=== PATIENT | male | born 1960 | race Caucasian/White ===

== ENCOUNTER 2016-12-24 08:46 | Day surgery (SDC) | payer OTHER ==
[2016-12-21 13:49] VITALS: BMI 34.0
[~2016-12-24 08:46] MED LIST: DEXAMETHASONE SOD PHOSPHATE 10 MG/ML 1 ML VIAL IV ONE; HYDROmorphone 1 MG/ML 1 ML SYRINGE IVP PRN; LACTATED RINGERS 1,000 ML IV SCH; MIDAZOLAM 2 MG/2 ML VIAL IV PRN; ONDANSETRON 4 MG/2 ML VIAL IVP ONE; SCOPOLAMINE 1.5MG/72HR PATCH TRANSDERM ONE
[2016-12-24 09:15] VITALS: TEMP 98.7
[2016-12-24] MEDS ORDERED: LIDOCAINE 1% INJ 10MG/ML (20 ML MDV) ONE (09:52)
[2016-12-24] MEDS ORDERED: PROPOFOL 10 MG/ML 20 ML VIAL IV ONE (09:52)
--- NOTE | 2016-12-24 10:19 | P.GSHP ---
History of Present Illness H&P Date: 12/24/16 Chief Complaint: Screening colonoscopy Is a 56-year-old male referred from Dr. Cintron. Patient rents today for screening colonoscopy. He's never had a colonoscopy performed before. - Constitutional Constitutional: Reports as per HPI Past Medical History Past Medical History: Hyperlipidemia, Hypertension Additional Past Medical History / Comment(s): . History of Any Multi-Drug Resistant Organisms: None Reported Past Surgical History: Orthopedic Surgery Additional Past Surgical History / Comment(s): ARTHROSCOPY KNEE SURG., CELINA CATARACT , CERVICAL FUSION Past Anesthesia/Blood Transfusion Reactions: No Reported Reaction Past Psychological History: No Psychological Hx Reported Smoking Status: Former smoker Past Alcohol Use History: Occasional Additional Past Alcohol Use History / Comment(s): QUIT SMOKING 1 MONTH AGO. STARTED SMOKING IN HIS 20'S. , SMOKED 1PPD. Past Drug Use History: None Reported - Past Family History Mother Family Medical History: No Reported History Medications and Allergies Home Medications Medication Instructions Recorded Confirmed Type Rosuvastatin Calcium [Crestor] 20 mg PO DAILY@1300 07/09/14 12/24/16 History Losartan Potassium [Cozaar] 100 mg PO DAILY@1300 12/21/16 12/24/16 History Timolol 0.5% Ophth Soln [Timoptic 1 drop BOTH EYES DAILY 12/21/16 12/24/16 History 0.5% Ophth Soln] amLODIPine BESYLATE [Norvasc] 5 mg PO DAILY@1300 12/21/16 12/24/16 History Allergies Allergy/AdvReac Type Severity Reaction Status Date / Time No Known Allergies Allergy Verified 12/24/16 09:16 Surgical - Exam Vital Signs Temp Pulse Resp BP Pulse Ox 98.7 F 72 18 133/77 98 12/24/16 09:13 12/24/16 09:13 12/24/16 09:13 12/24/16 09:13 12/24/16 09:13 - General well developed, no distress - Eyes PERRL - ENT normal pinna - Neck no masses - Abdomen Abdomen: soft, non tender Assessment and Plan Plan: We'll perform screening colonoscopy.
--- NOTE | 2016-12-24 10:36 | P.OP ---
Date of Procedure: 12/24/16 Preoperative Diagnosis: Screening colonoscopy Postoperative Diagnosis: Normal colon Procedure(s) Performed: Colonoscopy Anesthesia: MAC Surgeon: Elvis Wu Pathology: none sent Condition: stable Disposition: PACU Description of Procedure: PROCEDURE: The patient was placed on the endoscopy table in the lateral position. Digital rectal examination was performed which revealed no abnormalities. The prostate was symmetrical without nodules. Flexible colonoscope was then placed in the patient's anus and passed throughout the entire colon. The ileocecal valve was visualized. The cecum, ascending, transverse, descending and sigmoid colon were normal. The rectum was normal as well. There were no masses, polyps or diverticula noted in the entire colon. SUMMARY OF FINDINGS: Normal colonoscopy.
[2016-12-24 10:53] VITALS: BP 141/87; PULSE 65; RESP 16
== END 2016-12-24 11:07 | disposition home or self-care (01) ==
LOC: ORWHC2ENDO 08:46
PROVIDERS: ATTEND Surgery
DX: Z12.11 Encounter for screening for malignant neoplasm of colon (principal); E78.5 Hyperlipidemia, unspecified; I10 Essential (primary) hypertension; Z79.899 Other long term (current) drug therapy; Z87.891 Personal history of nicotine dependence
CPT/HCPCS: J2001; J2704; G0121; 99153

== ENCOUNTER 2019-02-25 12:05 | Observation (INO) | payer OTHER ==
[2019-02-25] MEDS ORDERED: NITROGLYCERIN OINT 1 INCH/GM PACKET TOPICAL STA (12:16)
[2019-02-25] MEDS ORDERED: ASPIRIN 81 MG PO STA (12:16)
--- NOTE | 2019-02-25 12:19 | ED ---
General Adult HPI - General Chief complaint: Chest Pain Stated complaint: Chest discomfort Time Seen by Provider: 02/25/19 12:14 Source: patient, RN notes reviewed Mode of arrival: ambulatory Limitations: no limitations - History of Present Illness Initial comments: Patient is a pleasant 59-year-old male presenting to the emergency Department with complaints of chest discomfort. Onset of symptoms was yesterday. Discomfort was waxing and waning however now is more persistent. Discomfort is mild. Discomfort is described as tightness under the left chest. No associated dyspnea, nausea, or diaphoresis. Minimal cough. No leg pain or leg swelling. Patient did have similar symptoms once previously associated with pneumonia. No radiation of discomfort. - Related Data Home Medications Medication Instructions Recorded Confirmed Rosuvastatin Calcium [Crestor] 20 mg PO DAILY@1300 07/09/14 02/25/19 Timolol 0.5% Ophth Soln [Timoptic 1 drop BOTH EYES DAILY 12/21/16 02/25/19 0.5% Ophth Soln] amLODIPine BESYLATE [Norvasc] 5 mg PO DAILY@1300 12/21/16 02/25/19 Irbesartan [Avapro] 150 mg PO DAILY@1300 02/25/19 02/25/19 Allergies Allergy/AdvReac Type Severity Reaction Status Date / Time No Known Allergies Allergy Verified 02/25/19 12:27 Review of Systems ROS Statement: Those systems with pertinent positive or pertinent negative responses have been documented in the HPI. ROS Other: All systems not noted in ROS Statement are negative. Constitutional: Denies: fever Eyes: Denies: eye pain ENT: Denies: ear pain Respiratory: Reports: as per HPI. Denies: dyspnea Cardiovascular: Reports: chest pain Endocrine: Denies: fatigue Gastrointestinal: Denies: abdominal pain Genitourinary: Denies: dysuria Musculoskeletal: Denies: back pain Skin: Denies: rash Neurological: Denies: weakness Past Medical History Past Medical History: Hyperlipidemia, Hypertension Additional Past Medical History / Comment(s): . History of Any Multi-Drug Resistant Organisms: None Reported Past Surgical History: Orthopedic Surgery Additional Past Surgical History / Comment(s): ARTHROSCOPY KNEE SURG, CELINA CATARACT, CERVICAL FUSION Past Anesthesia/Blood Transfusion Reactions: No Reported Reaction Past Psychological History: No Psychological Hx Reported Smoking Status: Current every day smoker Past Alcohol Use History: Occasional Past Drug Use History: None Reported - Past Family History Mother Family Medical History: No Reported History General Exam Limitations: no limitations General appearance: alert, in no apparent distress Head exam: Present: atraumatic Eye exam: Present: normal appearance Neck exam: Present: normal inspection Respiratory exam: Present: normal lung sounds bilaterally. Absent: chest wall tenderness Cardiovascular Exam: Present: regular rate, normal rhythm Expanded Peripheral pulses: 2+: Radial (R), Radial (L), Posterior Tibialis (R), Posterior Tibialis (L) GI/Abdominal exam: Present: soft. Absent: tenderness Extremities exam: Present: normal inspection. Absent: pedal edema, calf tenderness Neurological exam: Present: alert Psychiatric exam: Present: normal affect, normal mood Skin exam: Present: normal color Course Vital Signs 02/25/19 02/25/19 12:07 13:31 Temperature 98.4 F Pulse Rate 77 65 Respiratory 18 18 Rate Blood Pressure 152/78 135/75 O2 Sat by Pulse 99 98 Oximetry EKG Findings - EKG Comments: EKG Findings:: Normal sinus rhythm 72. [place] 146. QRS 90. QT 370. QTc 405. Left axis. Normal QRS. No acute ST change. Medical Decision Making - Medical Decision Making Patient reevaluated and improved with Nitropaste. Patient and family updated on results and plan. Case was discussed in detail with Dr. Barrios, covering for Dr. Cintron, who will admit. - Lab Data Result diagrams: 02/25/19 12:35 02/25/19 12:35 Lab Results 02/25/19 02/25/19 02/25/19 Range/Units 12:35 12:35 12:35 WBC 5.9 (3.8-10.6) k/uL RBC 4.89 (4.30-5.90) m/uL Hgb 14.8 (13.0-17.5) gm/dL Hct 43.7 (39.0-53.0) % MCV 89.4 (80.0-100.0) fL MCH 30.4 (25.0-35.0) pg MCHC 34.0 (31.0-37.0) g/dL RDW 12.9 (11.5-15.5) % Plt Count 237 (150-450) k/uL Neutrophils % 60 % Lymphocytes % 22 % Monocytes % 7 % Eosinophils % 8 % Basophils % 1 % Neutrophils # 3.6 (1.3-7.7) k/uL Lymphocytes # 1.3 (1.0-4.8) k/uL Monocytes # 0.4 (0-1.0) k/uL Eosinophils # 0.5 (0-0.7) k/uL Basophils # 0.1 (0-0.2) k/uL PT 10.0 (9.0-12.0) sec INR 0.9 (<1.2) APTT 24.8 (22.0-30.0) sec Sodium 141 (137-145) mmol/L Potassium 4.3 (3.5-5.1) mmol/L Chloride 107 (98-107) mmol/L Carbon Dioxide 27 (22-30) mmol/L Anion Gap 7 mmol/L BUN 17 (9-20) mg/dL Creatinine 0.96 (0.66-1.25) mg/dL Est GFR (CKD-EPI)AfAm >90 (>60 ml/min/1.73 sqM) Est GFR (CKD-EPI)NonAf 86 (>60 ml/min/1.73 sqM) Glucose 124 H (74-99) mg/dL Calcium 10.1 (8.4-10.2) mg/dL Magnesium 2.2 (1.6-2.3) mg/dL Total Bilirubin 0.6 (0.2-1.3) mg/dL AST 24 (17-59) U/L ALT 34 (21-72) U/L Alkaline Phosphatase 97 (38-126) U/L Troponin I (0.000-0.034) ng/mL Total Protein 7.4 (6.3-8.2) g/dL Albumin 4.8 (3.5-5.0) g/dL 02/25/19 Range/Units 12:35 WBC (3.8-10.6) k/uL RBC (4.30-5.90) m/uL Hgb (13.0-17.5) gm/dL Hct (39.0-53.0) % MCV (80.0-100.0) fL MCH (25.0-35.0) pg MCHC (31.0-37.0) g/dL RDW (11.5-15.5) % Plt Count (150-450) k/uL Neutrophils % % Lymphocytes % % Monocytes % % Eosinophils % % Basophils % % Neutrophils # (1.3-7.7) k/uL Lymphocytes # (1.0-4.8) k/uL Monocytes # (0-1.0) k/uL Eosinophils # (0-0.7) k/uL Basophils # (0-0.2) k/uL PT (9.0-12.0) sec INR (<1.2) APTT (22.0-30.0) sec Sodium (137-145) mmol/L Potassium (3.5-5.1) mmol/L Chloride (98-107) mmol/L Carbon Dioxide (22-30) mmol/L Anion Gap mmol/L BUN (9-20) mg/dL Creatinine (0.66-1.25) mg/dL Est GFR (CKD-EPI)AfAm (>60 ml/min/1.73 sqM) Est GFR (CKD-EPI)NonAf (>60 ml/min/1.73 sqM) Glucose (74-99) mg/dL Calcium (8.4-10.2) mg/dL Magnesium (1.6-2.3) mg/dL Total Bilirubin (0.2-1.3) mg/dL AST (17-59) U/L ALT (21-72) U/L Alkaline Phosphatase (38-126) U/L Troponin I <0.012 (0.000-0.034) ng/mL Total Protein (6.3-8.2) g/dL Albumin (3.5-5.0) g/dL - Radiology Data Interpreted by me: Chest x-ray reveals no acute process. There are chronic changes similar to previous x-ray. Disposition Clinical Impression: Chest pain Disposition: ADMITTED IP TO THIS HOSP Is patient prescribed a controlled substance at d/c from ED?: No Referrals: Sam Cintron MD [Primary Care Provider] - 1-2 days Decision Time: 14:14
[2019-02-25 13:27] LABS: ALT 34 U/L (21-72); AST 24 U/L (17-59); Albumin 4.8 g/dL (3.5-5.0); Alkaline Phosphatase 97 U/L (38-126); Anion Gap 7 mmol/L; Blood Urea Nitrogen 17 mg/dL (9-20); Calcium 10.1 mg/dL (8.4-10.2); Carbon Dioxide 27 mmol/L (22-30); Chloride 107 mmol/L (98-107); Glucose 124 mg/dL (74-99); INR 0.9 (<1.2); Magnesium 2.2 mg/dL (1.6-2.3); Partial Thromboplastin Time 24.8 sec (22.0-30.0); Potassium 4.3 mmol/L (3.5-5.1); Sodium 141 mmol/L (137-145); Total Bilirubin 0.6 mg/dL (0.2-1.3); Total Protein 7.4 g/dL (6.3-8.2)
[2019-02-25 13:33] LABS: Basophils # (A) 0.1 k/uL (0-0.2); Basophils % (A) 1 %; Eosinophils # (A) 0.5 k/uL (0-0.7); Eosinophils % (A) 8 %; HCT 43.7 % (39.0-53.0); HGB 14.8 gm/dL (13.0-17.5); Lymphocytes # (A) 1.3 k/uL (1.0-4.8); Lymphocytes % (A) 22 %; MCH 30.4 pg (25.0-35.0); MCV 89.4 fL (80.0-100.0); Mean Platelet Volume 6.6; Monocytes # (A) 0.4 k/uL (0-1.0); Monocytes % (A) 7 %; Neutrophils # (A) 3.6 k/uL (1.3-7.7); Neutrophils % (A) 60 %; Platelet Count 237 k/uL (150-450); RBC 4.89 m/uL (4.30-5.90); RDW 12.9 % (11.5-15.5); WBC 5.9 k/uL (3.8-10.6)
[2019-02-25] MEDS ORDERED: NITROGLYCERIN SL TABS 0.4 MG TAB SUBLINGUAL PRN (14:14)
--- NOTE | 2019-02-25 14:34 | XR ---
EXAMINATION TYPE: XR chest 2V DATE OF EXAM: 02/25/2019 HISTORY: Chest Pain. REFERENCE: Previous study dated 07/05/2014. FINDINGS: There has been a previous ACDF in the lower cervical spine. Lung volumes are prominent. There are calcified pleural plaques on the right. The lungs are otherwise clear. The heart is not enlarged. IMPRESSION: NO ACUTE INTRATHORACIC ABNORMALITY.
--- NOTE | 2019-02-25 15:05 | P.HPIM ---
History of Present Illness Patient was a 59-year-old gentleman came in with compensative chest discomfort going on since yesterday constant mild pressure-like sensation nonradiating not associated food not associated debriding denied any lightheadedness diaphoresis or shortness of breath associated that patient does smoke about one pack of cigarettes in 3 days and does have history of hypertension and hyperlipidemia, family history of myocardial infarction mother at age 62 and she after that [place]. Patient any fever chills patient chest x-ray did not show pneumonia patient denied any significant cough. Chest pain is nonradiating. No associated [place]. Troponin is negative EKG did not show any acute ST-T wave changes Review of Systems REVIEW OF SYSTEMS: CONSTITUTIONAL: No fever, no malaise, no fatigue. HEENT: No recent visual problems or hearing problems. Denied any sore throat. CARDIOVASCULAR: No orthopnea, PND, no palpitations, no syncope. PULMONARY: No shortness of breath, no cough, no hemoptysis. GASTROINTESTINAL: No diarrhea, no nausea, no vomiting, no abdominal pain. NEUROLOGICAL: No headaches, no weakness, no numbness. HEMATOLOGICAL: Denies any bleeding or petechiae. GENITOURINARY: Denies any burning micturition, frequency, or urgency. MUSCULOSKELETAL/RHEUMATOLOGICAL: Denies any joint pain, swelling, or any muscle pain. ENDOCRINE: Denies any polyuria or polydipsia. The rest of the 14-point review of systems is negative. Past Medical History Past Medical History: Hyperlipidemia, Hypertension Additional Past Medical History / Comment(s): . History of Any Multi-Drug Resistant Organisms: None Reported Past Surgical History: Orthopedic Surgery Additional Past Surgical History / Comment(s): ARTHROSCOPY KNEE SURG, CELINA CATARACT, CERVICAL FUSION Past Anesthesia/Blood Transfusion Reactions: No Reported Reaction Past Psychological History: No Psychological Hx Reported Smoking Status: Current every day smoker Past Alcohol Use History: Occasional Past Drug Use History: None Reported - Past Family History Mother Family Medical History: No Reported History Medications and Allergies Home Medications Medication Instructions Recorded Confirmed Type Rosuvastatin Calcium [Crestor] 20 mg PO DAILY@1300 07/09/14 02/25/19 History Timolol 0.5% Ophth Soln [Timoptic 1 drop BOTH EYES DAILY 12/21/16 02/25/19 Histo ry 0.5% Ophth Soln] amLODIPine BESYLATE [Norvasc] 5 mg PO DAILY@1300 12/21/16 02/25/19 History Irbesartan [Avapro] 150 mg PO DAILY@1300 02/25/19 02/25/19 History Allergies Allergy/AdvReac Type Severity Reaction Status Date / Time No Known Allergies Allergy Verified 02/25/19 12:27 Physical Exam Vitals: Vital Signs Temp Pulse Resp BP Pulse Ox 02/25/19 14:23 64 18 126/76 96 02/25/19 13:31 65 18 135/75 98 02/25/19 12:07 98.4 F 77 18 152/78 99 Intake and Output 02/25/19 02/25/19 02/25/19 06:59 14:59 22:59 Other: Weight 109.361 kg PHYSICAL EXAMINATION: GENERAL: The patient is alert and oriented x3, not in any acute distress. Well developed, well nourished. HEENT: Pupils are round and equally reacting to light. EOMI. No scleral icterus. No conjunctival pallor. Normocephalic, atraumatic. No pharyngeal erythema. No thyromegaly. CARDIOVASCULAR: S1 and S2 present. No murmurs, rubs, or gallops. PULMONARY: Chest is clear to auscultation, no wheezing or crackles. ABDOMEN: Soft, nontender, nondistended, normoactive bowel sounds. No palpable organomegaly. MUSCULOSKELETAL: No joint swelling or deformity. EXTREMITIES: No cyanosis, clubbing, or pedal edema. NEUROLOGICAL: Gross neurological examination did not reveal any focal deficits. SKIN: No rashes. Results CBC & Chem 7: 02/25/19 12:35 02/25/19 12:35 Labs: Abnormal Lab Results - Last 24 Hours (Table) 02/25/19 Range/Units 12:35 Glucose 124 H (74-99) mg/dL Assessment and Plan Plan: Chest pain: Atypical, will rule out acute coronary syndromes and unstable angina patient does have risk factors may benefit from stress test. Cardiology will evaluate the patient will obtain 2 more sets of troponins and EKGs. -Hypertension -Hyperlipidemia -Nicotine abuse: Counseling was provided For hypertension hyperlipidemia patient was on her home medications
[2019-02-25 17:18] VITALS: BMI 33.6
[2019-02-25] MEDS: NITROGLYCERIN OINT 1 INCH/GM PACKET TOPICAL SCH (17:55)
[2019-02-25 21:57] LABS: Cholesterol 151 mg/dL (<200); HDL Cholesterol 27 mg/dL (40-60); LDL Cholesterol,Calculated 53 mg/dL (0-99); Triglycerides 356 mg/dL (<150)
[2019-02-26] MEDS: NITROGLYCERIN OINT 1 INCH/GM PACKET TOPICAL SCH ×2 (01:25→03:55)
[2019-02-26 08:36] VITALS: RESP 18
[2019-02-26] MEDS ORDERED: TIMOLOL 0.5% OPHTH DROPS 5 ML BTL BOTH EYES SCH (09:00)
[2019-02-26] MEDS ORDERED: ASPIRIN 325 MG TAB PO SCH (09:00)
[2019-02-26] MEDS ORDERED: DOBUTamine DRIP for NUC MED 500 MG in DEXTROSE/WATER 1 250ML.BAG IV ONE (09:45)
--- NOTE | 2019-02-26 11:19 | P.CRDCN ---
History of Present Illness History of present illness: This is a pleasant 59-year-old male past medical history significant for hypertension, dyslipidemia and chronic nicotine dependence. He also has family history of his mother having premature coronary artery disease in her early 60s. He denies personal history of coronary artery disease and does not follow regularly with a chairman and ceo for any reason. We have been asked to see him in consultation secondary to chest discomfort. He states he started feeling intermittent tight heavy sensation in the left precordial region on Tuesday. This was not associated with exertion or activity with no specific aggravating factor. He states in the past he has had pneumonia and it seemed similar to how he felt at that time. Although he denies any shortness of breath or coughing associated with his discomfort. There was no radiation through to the back or down the arm. On Tuesday the symptoms were much more constant in nature and seemed to intensify. There was still no radiation of his discomfort and no associated symptoms. He states through the night he continued to have chest discomfort and it did seem to be worse when he leaned his body forward. No alleviating factors noted. He does currently have a nitro patch in place. EKG reviewed 3 are all normal with no acute ST or T wave abnormalities noted. Chest x-ray is negative for an acute cardiopulmonary process. Laboratory data reviewed, WBC 5.9, hemoglobin 14.8, platelets 237, sodium 141, potassium 4.3, creatinine 0.96, magnesium 2.2, cardiac enzymes negative 3, triglycerides 356, LDL 53. Current cardiac medications include irbesartan 150 mg daily, rosuvastatin 20 mg daily and amlodipine 5 mg daily. Most recent in 2013 he underwent a stress echocardiogram which was negative for stress-induced cardiac ischemia. At the time of my exam: CONSTITUTIONAL: Denies fever. Denies chills. EYES: Denies blurred vision. Denies vision changes. Denies eye pain. EARS, NOSE, MOUTH & THROAT: Denies headache. Denies sore throat. Denies ear pain. CARDIOVASCULAR: Complains of chest pain. Denies shortness of breath. Denies orthopnea. Denies PND. Denies palpitations. RESPIRATORY: Denies cough. GASTROINTESTINAL: Denies abdominal pain. Denies diarrhea. Denies constipation. Denies nausea. Denies vomiting. MUSCULOSKELETAL: Denies myalgias. INTEGUMENTARY: Denies pruitis. Denies rash. NEUROLOGIC: Denies numbness. Denies tingling. Denies weakness. PSYCHIATRIC: Denies anxiety. Denies depression. ENDOCRINE: Denies fatigue. Denies weight change. Denies polydipsia. Denies polyurina. GENITOURINARY: Denies burning, hematuria or urgency with micturation. HEMATOLOGIC: Denies history of anemia. Denies bleeding. Blood pressure 128/77 heart rate 73 afebrile maintaining oxygen saturation on room air GENERAL: This is a 59-year-old male in no apparent distress at the time of my examination. HEENT: Head is atraumatic, normocephalic. Pupils are equal, round. Sclerae anicteric. Conjunctivae are clear. Mucous membranes of the mouth are moist. Neck is supple. There is no jugular venous distention. No carotid bruit is heard. LUNGS: Clear to auscultation no wheezes, rales or rhonchi. No chest wall tenderness is noted on palpation or with deep breathing. HEART: Regular rate and rhythm without murmurs, rubs or gallops. S1 and S2 heard. ABDOMEN: Soft, nontender. Bowel sounds are heard. No organomegaly noted. EXTREMITIES: No evidence of peripheral edema and no calf tenderness noted. VASCULAR: Radial and dorsalis pedis pulses palpated, no evidence of clubbing. NEUROLOGIC: Patient is awake, alert and oriented x3. ASSESSMENT Precordial chest discomfort Hypertension Dyslipidemia Chronic nicotine dependence Family history of premature coronary artery disease PLAN An acute coronary event has been ruled out. Obtain 2-D echocardiogram and Doppler study to assess cardiac structure and function. Lengthy discussion had with the patient as well as his regarding stress testing versus coronary angiography due to his risk factors and symptoms. The patient will prefer to undergo a stress test to rule out significant ischemia. We will perform a dobutamine stress echocardiogram. If there is any abnormality we will proceed with coronary angiography. If stress test is normal he may be discharged home to follow-up with Dr. Parisi in the office in 2 weeks. Smoking cessation recommended. Thank you kindly for this consultation. Nurse Practitioner note has been reviewed, I agree with a documented findings and plan of care. Patient was seen and examined. Past Medical History Past Medical History: Hyperlipidemia, Hypertension Additional Past Medical History / Comment(s): . History of Any Multi-Drug Resistant Organisms: None Reported Past Surgical History: Orthopedic Surgery Additional Past Surgical History / Comment(s): ARTHROSCOPY KNEE SURG, CELINA CATARA CT, CERVICAL FUSION Past Anesthesia/Blood Transfusion Reactions: No Reported Reaction Past Psychological History: No Psychological Hx Reported Smoking Status: Current every day smoker Past Alcohol Use History: Occasional Past Drug Use History: None Reported - Past Family History Mother Family Medical History: No Reported History Medications and Allergies Home Medications Medication Instructions Recorded Confirmed Type Rosuvastatin Calcium [Crestor] 20 mg PO DAILY@1300 07/09/14 02/25/19 History Timolol 0.5% Ophth Soln [Timoptic 1 drop BOTH EYES DAILY 12/21/16 02/25/19 History 0.5% Ophth Soln] amLODIPine BESYLATE [Norvasc] 5 mg PO DAILY@1300 12/21/16 02/25/19 History Irbesartan [Avapro] 150 mg PO DAILY@1300 02/25/19 02/25/19 History Allergies Allergy/AdvReac Type Severity Reaction Status Date / Time No Known Allergies Allergy Verified 02/25/19 12:27 Physical Exam Vitals: Vital Signs Temp Pulse Pulse Resp BP BP Pulse Ox 02/26/19 08:00 73 18 02/26/19 07:45 98.3 F 73 18 128/77 97 02/26/19 04:18 97.9 F 72 16 128/67 98 02/26/19 03:43 74 16 02/26/19 00:00 73 16 02/25/19 23:38 97.9 F 78 14 133/64 99 02/25/19 20:00 68 15 02/25/19 19:33 97.9 F 67 14 134/69 98 02/25/19 14:34 97.8 F 60 18 147/84 98 02/25/19 14:23 64 18 126/76 96 02/25/19 13:31 65 18 135/75 98 02/25/19 12:07 98.4 F 77 18 152/78 99 Intake and Output 02/25/19 02/26/19 02/26/19 22:59 06:59 14:59 Other: Voiding Method Toilet Toilet Toilet # Voids 1 1 Results 02/25/19 12:35 02/25/19 12:35 Cardiac Enzymes 04/28/19 04/28/19 04/28/19 Range/Units 12:35 12:35 18:04 AST 24 (17-59) U/L Troponin I <0.012 <0.012 (0.000-0.034) ng/mL 02/26/19 Range/Units 00:33 AST (17-59) U/L Troponin I <0.012 (0.000-0.034) ng/mL Coagulation 02/25/19 Range/Units 12:35 PT 10.0 (9.0-12.0) sec APTT 24.8 (22.0-30.0) sec Lipids 02/25/19 Range/Units 12:35 Triglycerides 356 H (<150) mg/dL Cholesterol 151 (<200) mg/dL HDL Cholesterol 27 L (40-60) mg/dL CBC 02/25/19 Range/Units 12:35 WBC 5.9 (3.8-10.6) k/uL RBC 4.89 (4.30-5.90) m/uL Hgb 14.8 (13.0-17.5) gm/dL Hct 43.7 (39.0-53.0) % Plt Count 237 (150-450) k/uL Comprehensive Metabolic Panel 02/25/19 Range/Units 12:35 Sodium 141 (137-145) mmol/L Potassium 4.3 (3.5-5.1) mmol/L Chloride 107 (98-107) mmol/L Carbon Dioxide 27 (22-30) mmol/L BUN 17 (9-20) mg/dL Creatinine 0.96 (0.66-1.25) mg/dL Glucose 124 H (74-99) mg/dL Calcium 10.1 (8.4-10.2) mg/dL AST 24 (17-59) U/L ALT 34 (21-72) U/L Alkaline Phosphatase 97 (38-126) U/L Total Protein 7.4 (6.3-8.2) g/dL Albumin 4.8 (3.5-5.0) g/dL Current Medications Generic Name Dose Route Start Last Admin Trade Name Freq PRN Reason Stop Dose Admin Amlodipine Besylate 5 mg 02/26/19 13:00 Norvasc PO DAILY@1300 [facility] Aspirin 325 mg 02/26/19 09:00 Aspirin PO DAILY [facility] Atorvastatin Calcium 40 mg 02/26/19 13:00 Lipitor PO DAILY@1300 [facility] Dobutamine HCl/Dextrose 500 mg 250 mls @ 32.808 mls/hr 02/26/19 09:45 / IV Solution IV 02/26/19 17:22 .[id number] ONE Protocol 10 MCG/KG/MIN Losartan Potassium 50 mg 02/26/19 13:00 Cozaar PO DAILY@1300 [facility] Nitroglycerin 0.4 mg 02/25/19 14:14 Nitrostat SUBLINGUAL Q5M PRN Chest Pain Sodium Chloride 10 ml 02/25/19 21:00 02/25/19 20:58 Saline Flush IV 10 ml BID ANGELA Administration Timolol Maleate 1 drops 02/26/19 09:00 Timoptic BOTH EYES DAILY [facility] Intake and Output 02/25/19 02/26/19 02/26/19 22:59 06:59 14:59 Other: Voiding Method Toilet Toilet Toilet # Voids 1 1 02/25/19 12:35 02/25/19 12:35
[2019-02-26] MEDS ORDERED: PANTOPRAZOLE 40 MG TABLET PO STA (11:49)
[2019-02-26 12:44] VITALS: BP 141/83; PULSE 85; TEMP 97.8
[2019-02-26] MEDS ORDERED: amLODIPine 5 MG TAB PO SCH (13:00)
[2019-02-26] MEDS ORDERED: LOSARTAN 50 MG TAB PO SCH (13:00)
[2019-02-26] MEDS ORDERED: ATORVASTATIN 40 MG TAB PO SCH (13:00)
--- NOTE | 2019-02-26 14:42 | ECHOF ---
Referral Reason: MEASUREMENTS -------- HEIGHT: 182.9 cm WEIGHT: 109.3 kg BP: IVSd: 1.0 cm (0.6 - 1.1) LVIDd: 4.8 cm (3.9 - 5.3) LVPWd: 1.1 cm (0.6 - 1.1) IVSs: 1.6 cm LVIDs: 2.4 cm LVPWs: 2.0 cm RVIDd: 2.6 cm (< 3.3) LAESV Index (A-L): 13.19 ml/m Ao Diam: 3.5 cm (2.0 - 3.7) LA Diam: 3.3 cm (2.7 - 3.8) AV Cusp: 1.8 cm (1.5 - 2.6) EPSS: 0.6 cm MV E Prem: 0.96 m/s MV DecT: 267 ms MV A Prem: 1.00 m/s MV E/A Ratio: 0.96 RAP: 5.00 mmHg RVSP: 9.79 mmHg MV EF SLOPE: 69.59 mm/s (70 - 150) MV EXCURSION: 9.37 mm (> 18.000) FINDINGS -------- Sinus rhythm. This was a technically difficult study with suboptimal views. The left ventricular size is normal. Left ventricular wall thickness is normal. Overall left vent ricular systolic function is normal with, an EF between 55 - 60 %. The right ventricle is normal in size. Normal LA size by volume 22+/-6 ml/m2. The right atrial size is normal. Interatrial and interventricular septum intact. Aortic valve is trileaflet and is mildly thickened. The mitral valve leaflets are mildly thickened. There is trace mitral regurgitation. Trace tricuspid regurgitation present. The right ventricular systolic pressure, as measured by Dopp ler, is 9.79mmHg. There is no pulmonic regurgitation present. The aortic root size is normal. Normal inferior vena cava with normal inspiratory collapse consistent with estimated right atrial pre ssure of 5 mmHg. CONCLUSIONS -------- 1. Sinus rhythm. 2. This was a technically difficult study with suboptimal views. 3. The left ventricular size is normal. 4. Left ventricular wall thickness is normal. 5. Overall left ventricular systolic function is normal with, an EF between 55 - 60 %. 6. The right ventricle is normal in size. 7. Normal LA size by volume 22+/-6 ml/m2. 8. The right atrial size is normal. 9. Interatrial and interventricular septum intact. 10. Aortic valve is trileaflet and is mildly thickened. 11. The mitral valve leaflets are mildly thickened. 12. There is trace mitral regurgitation. 13. Trace tricuspid regurgitation present. 14. The right ventricular systolic pressure, as measured by Doppler, is 9.79mmHg. 15. There is no pulmonic regurgitation present. 16. The aortic root size is normal. 17. Normal inferior vena cava with normal inspiratory collapse consistent with estimated right atrial pressure of 5 mmHg. TRIAGE REGISTER NURSE: Candy Pires RDCS
--- NOTE | 2019-02-26 15:11 | ECHOS ---
STRESS ECHOCARDIOGRAM INDICATIONS: Chest pain. BASELINE HEART RATE: 70 BASELINE BLOOD PRESSURE: 126/80 MAXIMUM HEART RATE: 142 MAXIMUM BLOOD PRESSURE: 177/39 85% MPHR: 135 100% MPHR: 159 MAXIMUM STAGE REACHED: 3 TOTAL EXERCISE TIME: 7:30 CLINICAL INFORMATION: A 59-year-old male patient presenting with chest pain. History of hypertension and dyslipidemia and a family history of CAD in his mother detected at the age of 61. History of smoking. Baseline heart rate 70 beats per minute. Baseline blood pressure 126/80 mmHg. Patient has bilateral osteoarthritis of the knees and could not exercise on a [facility] protocol. Hence a dobutamine stress echo was performed. Baseline 12-lead ECG shows sinus rhythm with normal cardiac intervals. No ST-segment abnormalities. Patient received dobutamine infusion per protocol, up to 30 mcg, normal blood pressure response to dobutamine. Occasional PVCs, ventricular couplets and 1 short run of nonsustained atrial tachycardia was noted. There was no ECG evidence for ischemia. The baseline 2D echo images were suboptimal, therefore Definity contrast was used to delay the endocardial borders. There was a stepwise increment in overall LV contractility without developing any wall motion abnormalities. At recovery, no regional wall motion abnormalities were noted. IMPRESSION: 1. Normal dobutamine stress echo. 2. Occasional premature ventricular contractions, ventricular couplets and 1 short run of nonsustained atrial tachycardia. No evidence for ischemia. MMODL / IJN: [id number] /
== END 2019-02-26 14:47 | disposition home or self-care (01) ==
LOC: EC 12:05 → 1SOBS 14:14
PROVIDERS: ADMIT Family Medicine; ATTEND Family Medicine
DX: R07.89 Other chest pain (principal); E78.5 Hyperlipidemia, unspecified; F17.200 Nicotine dependence, unspecified, uncomplicated; I10 Essential (primary) hypertension; Z79.899 Other long term (current) drug therapy; Z87.01 Personal history of pneumonia (recurrent); Z82.49 Family history of ischemic heart disease and other diseases of the circulatory system; Z98.42 Cataract extraction status, left eye; Z98.41 Cataract extraction status, right eye; Z98.1 Arthrodesis status
CPT/HCPCS: 99285; 36415; 93005; 93306; 93351; 80061; 80053; 83735; 84484 ×2; 85025; 85610; 85730; 71046; G0378 ×2; J1250; Q9950

== ENCOUNTER → 2022-05-20 | Outpatient (CLI) | payer MEDICAID ==
[2022-05-20 14:20] LABS: Basophils % (A) 1.4 %; Eosinophils # (A) 0.42 X 10*3/uL (0.04-0.35); Eosinophils % (A) 5.8 %; HCT 43.9 % (39.6-50.0); HGB 14.7 g/dL (13.0-17.0); Immature Grans, Automated 0.3 %; Lymphocytes # (A) 1.75 X 10*3/uL (0.90-5.00); Lymphocytes % (A) 24.4 %; MCH 29.9 pg (27.0-32.0); MCHC 33.5 g/dL (32.0-37.0); MCV 89.2 fL (80.0-97.0); Mean Platelet Volume 9.7 fL (9.5-12.2); Monocytes # (A) 0.63 X 10*3/uL (0.20-1.00); Monocytes % (A) 8.8 %; NRBC Per 100 WBC 0 /100 WBCS (0.0-0.0); Neutrophils # (A) 4.26 X 10*3/uL (1.80-7.70); Neutrophils % (A) 59.3 %; Platelet Count 238 X 10*3/uL (140-440); RBC 4.92 X 10*6/uL (4.40-5.60); RDW 12.4 % (11.5-14.5); WBC 7.18 X 10*3/uL (4.50-10.00)
[2022-05-20 14:43] LABS: ALT 23 U/L (10-49); AST 23 U/L (14-35); African American GFR (CKD) 72.2 (60.0-200.0); Albumin 4.6 g/dL (3.8-4.9); Alkaline Phosphatase 102 U/L (41-126); BUN/Creat Ratio 16.39 Ratio (12.00-20.00); Calcium 9.7 mg/dL (8.7-10.3); Carbon Dioxide 22.5 mmol/L (20.0-27.5); Chloride 106 mmol/L (96-109); Chol/HDL Ratio 6.48 Ratio; Globulin 2.1 g/dL (1.6-3.3); Glucose 96 mg/dL (70-110); LDL Cholesterol,Calculated 63.5 mg/dL (0.0-131.0); Non-African American GFR(CKD) 62.3 (60.0-200.0); Potassium 4.5 mmol/L (3.5-5.5); Sodium 140 mmol/L (135-145); Total Protein 6.7 g/dL (6.2-8.2)
== END | disposition home or self-care (01) ==
LOC: LABWHC1 10:00
PROVIDERS: ATTEND Family Medicine
DX: E78.5 Hyperlipidemia, unspecified (principal); J44.9 Chronic obstructive pulmonary disease, unspecified
CPT/HCPCS: 36415; 80053; 80061; 84153; 84439; 84443; 85025

== ENCOUNTER → 2023-01-24 | Outpatient (CLI) | payer MEDICAID ==
[2023-01-24 18:16] LABS: Basophils # (A) 0.11 X 10*3/uL (0.00-0.10); Basophils % (A) 1.5 %; Eosinophils # (A) 0.42 X 10*3/uL (0.04-0.35); Eosinophils % (A) 5.7 %; HCT 45.6 % (39.6-50.0); HGB 15.6 g/dL (13.0-17.0); Immature Grans, Automated 0.3 %; Lymphocytes # (A) 1.79 X 10*3/uL (0.90-5.00); Lymphocytes % (A) 24.4 %; MCH 30.5 pg (27.0-32.0); MCHC 34.2 g/dL (32.0-37.0); MCV 89.1 fL (80.0-97.0); Mean Platelet Volume 8.7 fL (9.5-12.2); Monocytes # (A) 0.64 X 10*3/uL (0.20-1.00); Monocytes % (A) 8.7 %; NRBC Per 100 WBC 0 /100 WBCS (0.0-0.0); Neutrophils # (A) 4.37 X 10*3/uL (1.80-7.70); Neutrophils % (A) 59.4 %; Platelet Count 243 X 10*3/uL (140-440); RBC 5.12 X 10*6/uL (4.40-5.60); RDW 12.2 % (11.5-14.5); WBC 7.35 X 10*3/uL (4.50-10.00)
[2023-01-24 19:22] LABS: ALT 27 U/L (10-49); AST 22 U/L (14-35); African American GFR (CKD) 65.8 (60.0-200.0); Albumin 4.8 g/dL (3.8-4.9); Albumin/Globulin Ratio 2.17 (1.60-3.17); Alkaline Phosphatase 109 U/L (41-126); Blood Urea Nitrogen 15.2 mg/dL (9.0-27.0); Calcium 10.3 mg/dL (8.7-10.3); Carbon Dioxide 25.3 mmol/L (20.0-27.5); Chloride 102 mmol/L (96-109); Chol/HDL Ratio 5.13 Ratio; Globulin 2.2 g/dL (1.6-3.3); Glucose 90 mg/dL (70-110); LDL Cholesterol,Calculated 60.5 mg/dL (0.0-131.0); Non-African American GFR(CKD) 56.7 (60.0-200.0); Potassium 4.7 mmol/L (3.5-5.5); Sodium 137 mmol/L (135-145)
== END | disposition home or self-care (01) ==
LOC: LABWHC1 10:23
PROVIDERS: ATTEND Family Medicine
DX: J44.9 Chronic obstructive pulmonary disease, unspecified (principal); E78.5 Hyperlipidemia, unspecified; Z68.33 Body mass index [BMI] 33.0-33.9, adult; Z96.659 Presence of unspecified artificial knee joint
CPT/HCPCS: 36415; 80053; 80061; 84153; 84439; 85025

== ENCOUNTER → 2024-02-02 | Outpatient (CLI) | payer MEDICAID ==
[2024-02-02 14:47] LABS: Basophils % (A) 1.5 %; Eosinophils # (A) 0.54 X 10*3/uL (0.04-0.35); Eosinophils % (A) 8.2 %; HCT 43.4 % (39.6-50.0); HGB 15.1 g/dL (13.0-17.0); Lymphocytes # (A) 1.78 X 10*3/uL (0.90-5.00); Lymphocytes % (A) 27.2 %; MCH 30.8 pg (27.0-32.0); MCHC 34.8 g/dL (32.0-37.0); MCV 88.6 FL (80.0-97.0); Mean Platelet Volume 8.9 FL (9.5-12.2); Monocytes # (A) 0.52 X 10*3/uL (0.20-1.00); Monocytes % (A) 7.9 %; NRBC Per 100 WBC 0 X 10*3/uL (0.00-0.01); Neutrophils # (A) 3.59 X 10*3/uL (1.80-7.70); Neutrophils % (A) 54.9 %; Platelet Count 229 X 10*3/uL (140-440); RDW 12.2 % (11.5-14.5); WBC 6.55 X 10*3/uL (4.50-10.00)
[2024-02-02 15:00] LABS: ALT 27 U/L (10-49); AST 22 U/L (14-35); Albumin 4.9 g/dL (3.8-4.9); Albumin/Globulin Ratio 2.13 Ratio (1.60-3.17); Alkaline Phosphatase 99 U/L (41-126); BUN/Creat Ratio 11.92 Ratio (12.00-20.00); Blood Urea Nitrogen 15.5 mg/dL (9.0-27.0); Calcium 10.2 mg/dL (8.7-10.3); Carbon Dioxide 26.4 mmol/L (21.6-31.8); Chloride 105 mmol/L (96-109); Chol/HDL Ratio 5.19 Ratio; Globulin 2.3 g/dL (1.6-3.3); Glucose 106 mg/dL (70-110); LDL Cholesterol,Calculated 77.5 mg/dL (0.0-131.0); Potassium 4.5 mmol/L (3.5-5.5); Prostate Specific Antigen 0.75 ng/mL (0.000-4.500); Sodium 142 mmol/L (135-145); T4, Free (Free Thyroxine) 1.19 ng/dL (0.80-1.80); Total Bilirubin 0.6 mg/dL (0.3-1.2); Total Protein 7.2 g/dL (6.2-8.2)
== END | disposition home or self-care (01) ==
LOC: LABWHC1 10:07
PROVIDERS: ATTEND Family Medicine
DX: Z12.5 Encounter for screening for malignant neoplasm of prostate (principal); J44.9 Chronic obstructive pulmonary disease, unspecified; E78.5 Hyperlipidemia, unspecified
CPT/HCPCS: 36415; 80053; 80061; 84153; 84439; 84443; 85025